=== PATIENT | female | born 1990 | race Caucasian/White ===

== ENCOUNTER 2021-09-05 10:22 | Emergency (ER) | payer OTHER, SELFPAY ==
[2021-09-05 10:29] VITALS: BP 118/75; PULSE 76; RESP 16; TEMP 36.9; O2SAT 99
--- NOTE | 2021-09-05 10:34 | ED.URI ---
HPI - URI/Sore Throat General Chief Complaint: Upper Respiratory Infection Stated Complaint: Sinus Pain Time Seen by Provider: 09/05/21 10:38 Source: patient and RN notes reviewed Mode of arrival: ambulatory Limitations: no limitations History of Present Illness HPI Narrative: 31-year-old female presents with concern for sinus pain under her left eye, sinus congestion and drainage, body aches, chills. Reports symptoms started yesterday. She denies fever, sweats. Denies cough, sore throat, ear pain. Reports her kids had similar symptoms last week. MD elicited complaint: nasal congestion Related Data Allergies Allergy/AdvReac Type Severity Reaction Status Date / Time No Known Allergies Allergy Verified 09/05/21 10:36 Review of Systems Review of Systems: CONSTITUTIONAL: Denies malaise,sweats. Reports chills EYES: Denies visual changes, redness, or discharge. ENT: Reports rhinorrhea, congestion, sinus pain. Denies otalgia and sore throat. CARDIOVASCULAR: Denies chest pain, palpitations, or edema. RESPIRATORY: Denies cough. Denies dyspnea. GASTROINTESTINAL: Denies abdominal pain, nausea, vomiting, diarrhea SKIN: Denies rash or itching. MUSCULOSKELETAL: Reports myalgia. NEUROLOGIC: Denies headache. All systems reviewed & are unremarkable except as noted in HPI and below PMFSH Comments At time of signature, agree with nursing past medical, surgical, social and family history. There is no relevant family history pertinent to the presenting complaint Exam Narrative: GENERAL: Well-appearing, well-nourished, and in no acute distress. HEAD: Normocephalic EYES: PERRLA, conjunctivae clear, sclera clear. Very mild edema in the left lower lid ENT: Nares clear, turbinates edematous and erythematous, clear discharge. Left maxillary sinus tenderness. Mucous membranes moist. TM pearly ayala with sharp light reflex bilaterally; no tragal tenderness. Oropharynx not erythematous without lesions. Tonsils not enlarged and without exudate, no drooling, no hoarseness, no trismus, uvula midline. NECK: Supple. No lymphadenopathy CHEST: Clear to auscultation, breath sounds equal. No wheezing, rhonchi, rales, or stridor. No respiratory distress, speaks in full sentences. HEART: Regular rate and rhythm. No murmur heard. SKIN: Warm, dry, no rash. NEURO: Alert and oriented x3. PSYCH: Normal mood and affect Course Course Emergency Course: Patient is aware of diagnosis, understands and agrees to treatment plan. Anticipatory guidance given. Patient agrees to follow-up as directed and is aware of reasons to seek care at the emergency department. Portions of this record may have been created with voice recognition software Level of Care: Express Care Visit Vital Signs Vital signs: Vital Signs Temperature 98.4 F 09/05/21 10:29 Pulse Rate 76 09/05/21 10:29 Respiratory Rate 16 09/05/21 10:29 Blood Pressure 118/75 09/05/21 10:29 Pulse Oximetry 99 09/05/21 10:29 Temperature 98.4 F 09/05/21 10:29 Pulse Rate 76 09/05/21 10:29 Respiratory Rate 16 09/05/21 10:29 Blood Pressure 118/75 09/05/21 10:29 Pulse Oximetry 99 09/05/21 10:29 Reviewed. MDM - URI/Sore Throat MDM Narrative Medical decision making narrative: Differential diagnosis considered: Douglas virus, strep pharyngitis, allergic rhinitis, upper respiratory tract infection, sinusitis, rhinosinusitis, nasopharyngitis. viral pharyngitis, otitis media, otitis externa, pneumonia, bronchitis, viral cough syndrome, viral syndrome, and influenza. Exam findings show no acute concerns or changes; patient is non-toxic appearing and is in no distress. Patient is appropriate for outpatient treatment and follow-up. Lab Data Attestation: I reviewed the patient's lab results. Critical Care Time Critical Care Time Critical Care Time: No Discharge Plan Discharge Clinical Impression: Sinusitis Qualifiers: Sinusitis location: maxillary Chronicity: acute Recurrence: non-rec
== END 2021-09-05 10:49 | disposition home or self-care (01) ==
PROVIDERS: Emergency Provider Nurse Practitioner
DX: J01.00 Acute maxillary sinusitis, unspecified (principal)
CPT/HCPCS: 99213; G0463